=== PATIENT | female | born 1975 | race Caucasian/White ===

== ENCOUNTER 2023-09-09 14:49 | Emergency (ER) | payer BC, OTHER, SELFPAY ==
[2023-09-09 14:52] VITALS: BP 111/64
[2023-09-09] MEDS: NSS 500 IV (17:41)
[2023-09-09] MEDS: TYLENOL 650 MG PO (17:42)
--- NOTE | 2023-09-09 17:46 | EDRN ---
Pt reports she does not want IV contrast, that she wants to see the doctor 'not the aide'; PASHA Wilson notified.
[2023-09-09 17:50] LABS: % Basophils 0.6 % (0-2); % Eosinophils 1.2 % (0-6); % Immature Granulocytes 0.8 % (0-0.5); % Lymphocytes 23.5 % (20.5-51.1); % Neutrophils 67.9 % (42.2-75.2); Absolute Basophils 0.1 10^3/uL (0-0.2); Absolute Eosinophils 0.1 10^3/uL (0-0.7); Absolute Immature Granulocytes 0.1 10^3/uL (0-0.05); Absolute Lymphocytes 2.1 10^3/uL (1.2-3.4); Absolute Monocytes 0.5 10^3/uL (0.1-0.6); Absolute Neutrophils 6.1 10^3/uL (1.4-6.5); Hematocrit 41.4 % (37.0-47.0); Hemoglobin 14.7 g/dL (12.0-16.0); Mean Corp Hgb Conc. 35.5 g/dL (33.0-37.0); Mean Corpuscular Hgb 29.6 pg (27.0-31.0); Mean Corpuscular Volume 83.3 fL (81.0-99.0); Mean Platelet Volume 9.9 fL (7.4-10.4); Nucleated Red Blood Cells % 0 %; Platelet Count 318 10^3/uL (130-400); Red Blood Cell Count 4.97 10^6/uL (4.20-5.40); Red Cell Dist. Width 12.1 % (11.5-14.5)
--- NOTE | 2023-09-09 17:58 | ED.GENMED ---
History of Present Illness
<FARIHA Valdivia Last Filed: 09/10/23 20:36>
General
Chief Complaint: Headache
Source: patient
Exam Limitations: none
Time Seen by Provider: 09/09/23 16:41
Nursing documentation reviewed up to this point in time: agreed with
History of Present Illness
History of Present Illness:
pt is a 48 y/o F with h/o migraines remotely
here with dizziness that started yesterday with a headache that started abd then suddenly was followed by a pop feeling in her head followed by a band around her front of her head wrapping around the back
she says she feels lightheaded still and had facial tingling on both sides of her face yesterday
the headache that was severe was only seconds long but she has the pressure since then
she was able to sleep
woke up still wit hmild headache and funny feeling left side of her face
she called pcp and was sent here
she didn't faina any meds for pain and doesn't want any meds
she wants to be sure no aneurysm or stroke
no fhx of aneurysm
nonsmoker
no neck pain, passing out, fever, chills, sinusitism blurry vision
Past History
<FARIHA Valdivia Last Filed: 09/10/23 20:36>
Past History
ED Past Medical History: Other (migraines)
Social History
Tobacco: Non-smoker
Alcohol: None
Drug: None
Review of Systems
<FARIHA Valdivia Last Filed: 09/10/23 20:36>
Review of Systems
Allergies reviewed?: Yes
All Other Systems: Not applicable
Phy Exam
<FARIHA Valdivia Last Filed: 09/10/23 20:36>
Physical Exam
Physical Exam:
GENERAL: Alert , in no apparent distress
HEAD: NCAT
EYE: pupils equal and reactive, no nystagmus, no photophobia
NECK: Supple,full rom, nontender
ENT: o/p clr, mmm.
CARDIAC: Regular rate and rhythm . no edema
LUNGS: Clear breath sounds bilaterally, no acute respiratory distress, no wheezes/rales/rhonchi
ABDOMEN: Soft, without focal tenderness, no r/g, no cvat
NEUROLOGICAL: Alert and orientedx 4, cn intact, no facial asymmetry, 5/5 strength in UE/LE, sensation intact, romberg neg, ambulates without assistance, neg pronator drift
SKIN: Warm and dry, skin intact.
MUSCULOSKELETAL: No edema, well perfused.
PSYCH: anxious
Course
<Cassidy Snow PA-C - Last Filed: 09/10/23 20:36>
Orders/Labs/Results
Orders:
Orders
09/09/23 17:27
CT Head & Neck Angio W/wo IV Urgent
Comment: MODIFIED PER ORDERING
Reason For Exam: abrupt headache yesterday then faical numbness
0.9% Sodium Chloride 500 ml [Nss] 500 ml IV BOLUS
Acetaminophen [Tylenol] 650 mg PO NOW STA
09/09/23 17:41
Complete Blood Count/With Diff Urgent
Comprehensive Metabolic Panel Urgent
09/09/23 17:43
Acetaminophen [Tylenol] 325 mg .ROUTE .STK-MED ONE
Abnormal Lab Results
09/09/23
17:41
Abs Immat Gran (auto) 0.1 H 10^3/uL
(0-0.05)
Immature Gran % 0.8 H %
(0-0.5)
Creatinine 0.5 L mg/dL
(0.6-1.0)
09/09/23 17:41
09/09/23 17:41
Vital Signs
Initial and Last Documented VS:
Initial Vital Signs
Temp Pulse Resp BP Pulse Ox
99.2 F 86 18 111/64 100
09/09/23 14:52 09/09/23 14:52 09/09/23 14:52 09/09/23 14:52 09/09/23 14:52
Last Documented Vital Signs
Temp Pulse Resp BP Pulse Ox
97.8 F 74 18 110/68 99
09/09/23 19:26 09/09/23 19:26 09/09/23 19:26 09/09/23 19:26 09/09/23 19:26
<Niko Pierre, - Last Filed: 09/09/23 19:55>
Orders/Labs/Results
Orders:
Orders
09/09/23 17:27
CT Head & Neck Angio W/wo IV Urgent
Comment: MODIFIED PER ORDERING
Reason For Exam: abrupt headache yesterday then faical numbness
0.9% Sodium Chloride 500 ml [Nss] 500 ml IV BOLUS
Acetaminophen [Tylenol] 650 mg PO NOW STA
09/09/23 17:41
Complete Blood Count/With Diff Urgent
Comprehensive Metabolic Panel Urgent
09/09/23 17:43
Acetaminophen [Tylenol] 325 mg .ROUTE .STK-MED ONE
Abnormal Lab Results
09/09/23
17:41
Abs Immat Gran (auto) 0.1 H 10^3/uL
(0-0.05)
Immature Gran % 0.8 H %
(0-0.5)
Creatinine 0.5 L mg/dL
(0.6-1.0)
09/09/23 17:41
09/09/23 17:41
Vital Signs
Initial and Last Documented VS:
Initial Vital Signs
Temp Pulse Resp BP Pulse Ox
99.2 F 86 18 111/64 100
09/09/23 14:52 09/09/23 14:52 09/09/23 14:52 09/09/23 14:52 09/09/23 14:52
Last Documented Vital Signs
Temp Pulse Resp BP Pulse Ox
97.8 F 74 18 110/68 99
09/09/23 19:26 09/09/23 19:26 09/09/23 19:26 09/09/23 19:26 09/09/23 19:26
<Cassidy Snow PA-C - Last Filed: 09/10/23 20:36>
MDM/Problems Addressed
Differential Diagnosis Includes:
migraine, tension headache, aneurysm, dissewction
MDM/Problems Addressed:
48 y/o F with h/o previous migraines but this feels different
here with headache that is much better now but started yesterday and then was associated with a pop feeling that was brief but followed by b/l facial tingling and band like pressure around her head
it has gotten better today
no dizziness, vision changesw, fever, sinus
pt has stable vitals
intact neuro
cta ordered
transferred care to dr. pierre
<Cassidy Snow PA-C - Last Filed: 09/10/23 20:36>
*Critical Care Note
Total Time (30-74mins, 75-104mins- exclusive of procedures): Not Applicable
ED Attending Note
<Cassidy Snow PA-C - Last Filed: 09/10/23 20:36>
-
Portions of this chart may have been created with voice recognition software.� Occasional wrong word or��sound alike� substitutions may have occurred due to the inherent limitations of voice recognition software.
<Niko Pierre DO - Last Filed: 09/09/23 19:55>
ED Attending Note
Patient seen and examined by attending physician: Yes
I performed the substantive portion of visit, reviewed & personally made and approve the management plan that is documented in note by myself or MADAI.: Yes
ED Attending Note:
48-year-old female presents with headache that was bandlike in nature. Patient states that she also felt like she had lumbar (bilateral portion of her face. She now feels much better on my evaluation. Exam: Awake and alert, nonfocal motor exam,
temporal artery nontender. Assessment plan: Suspect tension headache. CT and CTA negative. Okay for discharge. Patient PCP follow-up recommend
Discharge Plan
Departure
Patient Disposition: Home (Routine Discharge)
Date of Disposition: 09/09/23
Time of Disposition: 19:50
Patient with high blood pressure during this ER visit?: No
Discharge Problem:
Headache
Instructions: Headache, Adult (DC)
Referrals:
Michael Sheffield MD [Family Provider] -
Activity Restrictions/Additional Instructions:
Please drink plenty fluids and use Tylenol and ibuprofen for pain control. Return immediately for weakness of any kind, fevers, worsening symptoms, vision changes or any other concerns. Please see your doctor next 3 days for follow-up and
reevaluation
Interventions
Interventions:
*Risk Screen - Suicide Last Done: 09/09/23 14:52
*General Assessment Last Done: 09/09/23 19:52
*Neglect/Abuse Screening Last Done: 09/09/23 14:52
ED- Fall Risk Assessment Last Done: 09/09/23 19:53
*ED COVID-19 Vaccine History Last Done: 09/09/23 14:52
*Nursing Disposition Last Done: 09/09/23 19:56
ED- Neurological Assessment Last Done: 09/09/23 16:38
Discharge Date and Time
Discharge Date/Time: 09/09/23 19:57
Print Language: ARABIC
[2023-09-09 18:12] LABS: ALT (SGPT) < 10 U/L (0-35); AST (SGOT) 17 U/L (14-36); Alkaline Phosphatase 60 U/L (38-126); Blood Urea Nitrogen 8 mg/dl (7-17); Calcium 9.9 mg/dl (8.4-10.2); Carbon Dioxide 25 mmol/L (22-30); Chloride 102 mmol/L (98-107); Glucose 88 mg/dl (70-99); Potassium 3.9 mmol/L (3.5-5.1); Sodium 137 mmol/L (135-145); Total Bilirubin 0.9 mg/dl (0.2-1.3); eGFR > 60.00
[2023-09-09 19:26] VITALS: BP 110/68
== END 2023-09-09 19:57 | disposition home or self-care (01) ==
LOC: EMR 14:49
PROVIDERS: Physician Assistant; EMERGENCY PHYSICIAN Emergency Medicine; FAMILY PHYSICIAN Internal Medicine
DX: R51.9 Headache, unspecified (principal)
CPT/HCPCS: 99284; 70496; 70498; 80053; 85025; Q9967

== ENCOUNTER → 2024-04-22 19:15 | Outpatient (REF) | payer BC, OTHER, SELFPAY | LOC: MRI 3T 19:15 | PROVIDERS: ATTENDING PHYSICIAN Family Medicine | DX: G62.9 Polyneuropathy, unspecified (principal) | CPT/HCPCS: 70553; A9575 ==

== ENCOUNTER → 2024-06-02 08:07 | Outpatient (REF) | payer BC, SELFPAY | LOC: RST 08:07 | PROVIDERS: ATTENDING PHYSICIAN Internal Medicine Gastroenterology; FAMILY PHYSICIAN Family Medicine | DX: R13.19 Other dysphagia (principal) | CPT/HCPCS: 74221 ==

== ENCOUNTER → 2024-09-15 06:53 | Outpatient (REF) | payer BC, SELFPAY | LOC: RAD 06:53 | PROVIDERS: ATTENDING PHYSICIAN Nurse Practitioner Family; FAMILY PHYSICIAN Family Medicine | DX: R10.9 Unspecified abdominal pain (principal) | CPT/HCPCS: 76700 ==

== ENCOUNTER 2024-12-14 02:16 | Emergency (ER) | payer BC, SELFPAY ==
[2024-12-14 02:18] VITALS: BP 122/64
[2024-12-14 02:50] LABS: Hematocrit 37.8 % (37.0-47.0); Hemoglobin 12.9 g/dL (12.0-16.0); Mean Corp Hgb Conc. 34.1 g/dL (33.0-37.0); Mean Corpuscular Volume 84.9 fL (81.0-99.0); Nucleated Red Blood Cells % 0 %; Platelet Count 291 10^3/uL (130-400); Red Cell Dist. Width 12.0 % (11.5-14.5)
[2024-12-14 03:18] LABS: ALT (SGPT) 18 U/L (0-35); AST (SGOT) 18 U/L (14-36); Albumin 4.5 g/dl (3.5-5.0); Alkaline Phosphatase 44 U/L (38-126); Blood Urea Nitrogen 12 mg/dl (7-17); Calcium 9.5 mg/dl (8.4-10.2); Carbon Dioxide 25 mmol/L (22-30); Chloride 104 mmol/L (98-107); Glucose 112 mg/dl (70-99); Potassium 4.2 mmol/L (3.5-5.1); Sodium 136 mmol/L (135-145); Total Protein 7.4 g/dl (6.3-8.2); eGFR > 60.00
[2024-12-14 03:34] LABS: Troponin I < 0.012 ng/ml
== END 2024-12-14 04:20 | disposition left against medical advice (07) ==
LOC: EMR 02:16
PROVIDERS: EMERGENCY PHYSICIAN Student in an Organized Health Care Education/Training Program
DX: R07.9 Chest pain, unspecified (principal); Z53.21 Procedure and treatment not carried out due to patient leaving prior to being seen by health care provider
CPT/HCPCS: 80053; 84484; 85025; 93005